=== PATIENT | female | born 2000 | race Caucasian/White ===

== ENCOUNTER 2020-03-12 11:15 | Emergency (ER) | payer OTHER ==
[~2020-03-12] VITALS: Ht 162.6 cm; Wt 54.8 kg
[2020-03-12] MEDS ORDERED: BIRTH CONTROL (11:47)
[2020-03-12] MEDS ORDERED: ACETAMINOPHEN 325 MG TABLET PO ONE (12:00)
[2020-03-12] MEDS ORDERED: KETOROLAC 30 MG/1 ML IM ONE (12:00)
[2020-03-12] MEDS ORDERED: ACETAMINOPHEN 325 MG TABLET ONE (12:08)
[2020-03-12] MEDS ORDERED: KETOROLAC 30 MG/1 ML ONE (12:08)
[2020-03-12 12:13] VITALS: BP 130/77
--- NOTE | 2020-03-12 12:13 | NUR ---
BREAK RN: PT RESTING ON BRITTANIE. NADN. LUTHER.
--- NOTE | 2020-03-12 12:16 | NUR ---
BREAK RN: PT TAKEN TO IMAGING IN STABLE CONDITION.
--- NOTE | 2020-03-12 13:41 | NUR ---
Patient given discharge instructions and they have confirmed that they understand the instructions. Patient ambulatory with steady gait.
== END 2020-03-12 13:48 | disposition home or self-care (01) ==
LOC: ED 11:57
DX: S20.212A Contusion of left front wall of thorax, initial encounter (principal); V86.56XA Driver of dirt bike or motor/cross bike injured in nontraffic accident, initial encounter; Y93.89 Activity, other specified; Y92.89 Other specified places as the place of occurrence of the external cause; Y99.8 Other external cause status
CPT/HCPCS: 71101; 96372; 99283; J1885